=== PATIENT | male | born 1975 | race Caucasian/White ===

== ENCOUNTER 2017-12-13 09:32 | Emergency (ER) | payer MEDICAID, OTHER ==
[2017-12-13 09:36] VITALS: BMI 25.1
[2017-12-13 10:00] VITALS: RESP 18; TEMP 98.5
[2017-12-13] MEDS ORDERED: Lidocaine 1% Inj (20ml) IJ STA (10:11)
[2017-12-13] MEDS ORDERED: Tmp-Smz 800 mg-160 mg DS Tab PO STA (10:11)
--- NOTE | 2017-12-13 10:11 | ED PDOC ---
Arrival/HPI - General Chief Complaint: Abnormal Skin Integrity Time Seen by Provider: 12/13/17 10:01 Historian: Patient - History of Present Illness Narrative History of Present Illness (Text): 12/13/17 10:01 42 y/o male, no significant pmh, nkda, c/o rt. sided buttock abscess x 4 days with no fall or trauma. Pt. stated that it started off as a small pimple, been having pain and growing, no difficulty walking of moving the bilateral hips and lower extremities, no numbness or tingling, no fever or chills, no headache, no dizziness, no other medical or psychological complaints. Past Medical History - Provider Review Nursing Documentation Reviewed: Yes - Infectious Disease Hx of Infectious Diseases: None - Tetanus Immunization Tetanus Immunization: Unknown - Hematological/Oncological Hx Hepatitis C: Yes - Psychiatric Hx Substance Use: Yes (methadone,IVDA) - Past Surgical History Past Surgical History: No Previous - Suicidal Assessment Feels Threatened In Home Enviroment: No Family/Social History - Physician Review Nursing Documentation Reviewed: Yes Family/Social History: Unknown Family HX Smoking Status: Light Smoker < 10 Cigarettes Daily Hx Alcohol Use: No Hx Substance Use: Yes (methadone,IVDA) Substance used: heroine Hx Substance Use Treatment: No (methadone) Allergies/Home Meds Allergies/Adverse Reactions: Allergies No Known Allergies Allergy (Verified 12/13/17 10:00) Review of Systems - Review of Systems Constitutional: absent: Fatigue, Fevers Eyes: absent: Vision Changes ENT: absent: Hearing Changes Respiratory: absent: SOB, Cough Cardiovascular: absent: Chest Pain Gastrointestinal: absent: Abdominal Pain, Nausea, Vomiting Musculoskeletal: absent: Arthralgias, Back Pain Skin: Rash, Skin Lesions, Abscess, Cellulitis. absent: Pruritis, Laceration, Ulcer Psychiatric: absent: Anxiety, Depression, Suicidal Ideation Physical Exam Vital Signs Reviewed: Yes Vital Signs Temp Pulse Resp BP Pulse Ox 12/13/17 09:56 98.5 F 86 18 106/70 97 Temperature: Afebrile Blood Pressure: Normal Pulse: Regular Respiratory Rate: Normal Appearance: Positive for: Well-Appearing, Non-Toxic, Comfortable Pain Distress: Moderate Mental Status: Positive for: Alert and Oriented X 3 - Systems Exam Head: Present: Atraumatic, Normocephalic Pupils: Present: PERRL Extroacular Muscles: Present: EOMI Conjunctiva: Present: Normal Mouth: Present: Moist Mucous Membranes Neck: Present: Normal Range of Motion Respiratory/Chest: Present: Clear to Auscultation, Good Air Exchange. No: Respiratory Distress, Accessory Muscle Use Cardiovascular: Present: Regular Rate and Rhythm, Normal S1, S2. No: Murmurs Abdomen: No: Tenderness, Distention, Peritoneal Signs, Rebound, Guarding Back: Present: Normal Inspection Upper Extremity: Present: Normal Inspection. No: Cyanosis, Edema Lower Extremity: Present: Normal Inspection. No: Edema Neurological: Present: GCS=15, CN II-XII Intact, Speech Normal, Motor Func Grossly Intact, Gait Normal, Memory Normal Skin: Present: Warm, Dry, Rashes (Rt. gluteal buttock region visible approx. 3cm diameter fluctuant with erythematous cellulitis/abscess, no streaking, no regional lymphenapathy. ), Normal Color Psychiatric: Present: Alert, Oriented x 3, Normal Insight, Normal Concentration Medical Decision Making ED Course and Treatment: 12/13/17 10:15 -keflex/bactrim/percocet -Sensation intact, motor 5/5, wound irrigated with normal saline 1000cc, clean with betadine, 1% lidocaine injected locally approx. 1cc with analgesic obtained , sterile procedure, #11 blade made 1cm incision with approx. 4cc of purulant abscess drained, 1/2" packing inserted, hemostasis obtained, xerofoam dressing, sensation intact, motor 5/5, total procedure time 15 minutes, no complication, less than 5cc of blood loss. 12/13/17 11:15 -Discharge home with keflex, bactrim ds, motrin, keep the dressing dry and clean for 2 days and return to the ER for wound check/packing check, return to the ER for any new or worsening signs or symptoms. - Medication Orders Current Medication Orders: Discontinued Medications Cephalexin Monohydrate (Keflex) 500 mg PO STAT STA PRN Reason: Protocol Stop: 12/13/17 10:12 Last Admin: 12/13/17 10:36 Dose: 500 mg Lidocaine HCl (Lidocaine 1% (20ml)) 1 ml IJ STAT STA Stop: 12/13/17 10:12 Oxycodone/Acetaminophen (Percocet 5/325 Mg Tab) 1 tab PO STAT STA Stop: 12/13/17 10:12 Last Admin: 12/13/17 10:39 Dose: Not Given Non-Admin Reason: Patient Refused Trimethoprim/Sulfamethoxazole (Bactrim Ds Tab) 1 tab PO STAT STA PRN Reason: Protocol Stop: 12/13/17 10:12 Last Admin: 12/13/17 10:36 Dose: 1 tab - PA / BURGLARY INVESTIGATOR / Resident Statement / has reviewed & agrees with the documentation as recorded. Disposition/Present on Arrival - Present on Arrival Any Indicators Present on Arrival: No History of DVT/PE: No History of Uncontrolled Diabetes: No Urinary Catheter: No History of Decub. Ulcer: No History Surgical Site Infection Following: None - Disposition Have Diagnosis and Disposition been Completed?: Yes Diagnosis: Cellulitis and abscess of buttock Disposition: HOME/ ROUTINE Disposition Time: 10:19 Patient Plan: Discharge Patient Problems: Current Active Problems Problem Status Onset Cellulitis and abscess of buttock Acute Condition: IMPROVED Discharge Instructions (ExitCare): Cellulitis (ED) Additional Instructions: -Discharge home with keflex, bactrim ds, motrin, keep the dressing dry and clean for 2 days and return to the ER for wound check/packing check, return to the ER for any new or worsening signs or symptoms. Prescriptions: Cephalexin [Keflex] 500 mg PO QID #40 capsule Ibuprofen [Motrin Tab] 600 mg PO QID PRN #30 tab PRN Reason: Other Sulfamethoxazole/Trimethoprim [Bactrim Ds Tablet] 1 each PO BID #20 tablet Referrals: Bruno Diez MD [Staff Provider] - Follow up with primary Forms: WORK NOTE
[2017-12-13] MEDS: Oxycodone/Acetaminophen 5/325 mg Tab PO STA ×2 (10:36→10:39)
[2017-12-13 11:37] VITALS: BP 110/72; PULSE 88; O2SAT 99
== END 2017-12-13 11:44 | disposition home or self-care (01) ==
LOC: ED 09:32
DX: L02.31 Cutaneous abscess of buttock (principal); L03.317 Cellulitis of buttock